=== PATIENT | male | born 1995 | race Caucasian/White ===

== ENCOUNTER → 2017-01-30 | Outpatient (CLI) | payer BC ==
--- NOTE | 2017-01-30 19:59 | DIAGNOSTIC IMAGING REPORT ---
RIGHT TOE(S) MIN 2 VIEWS CLINICAL HISTORY: 21 years-old Male presenting with GREAT TOE PAIN, Injury a few weeks ago. TECHNIQUE: Frontal, oblique, and lateral views of the right first toe were obtained. COMPARISON: None. FINDINGS: No acute fracture, malalignment, or radiopaque foreign body. No significant soft tissue swelling. IMPRESSION: No acute osseous injury of the right first toe. Electronically signed by: Mian Cavazos M.D. 01/30/2017 7:58 PM Dictated Date/Time: 01/30/2017 7:56 PM
== END | disposition home or self-care (01) ==
LOC: C.RAD 19:33
PROVIDERS: ATTEND Nurse Practitioner
DX: M79.674 Pain in right toe(s) (principal)